=== PATIENT | male | born 1970 | race African-American/Black ===

== ENCOUNTER 2023-09-05 10:26 | Emergency (ER) | payer BC, MEDICAID ==
[~2023-09-05] VITALS: Ht 190.5 cm; Wt 90.0 kg
[2023-09-05 10:29] VITALS: O2SAT 98
[2023-09-05 10:45] VITALS: BP 154/88; PULSE 94; RESP 18
[2023-09-05] MEDS: KETOROLAC 60MG/2ML VIAL IM ONE (10:45)
[2023-09-05] MEDS: TETANUS, DIPHTHERIA, PERTUSSIS VAC/PF 0.5ML (>10YR OLD) IM ONE (10:45)
[2023-09-05 13:00] VITALS: TEMP 98.6
[2023-09-05] MEDS: ACETAMINOPHEN 325MG TABLET PO ONE (13:00)
== END 2023-09-05 11:52 ==
LOC: ER 10:35
DX: S01.111A Laceration without foreign body of right eyelid and periocular area, initial encounter (principal); M25.561 Pain in right knee; I10 Essential (primary) hypertension
CPT/HCPCS: 99284; 73120; 73560; 73590; 90715; 12011; 90471; 96372; J1885